=== PATIENT | male | born 1975 | race African-American/Black ===

== ENCOUNTER → 2017-08-08 | Outpatient (CLI) | payer OTHER ==
[~2017-08-08] MED LIST: NOHOMEMEDICATIONS
== END ==
LOC: HYPER 08-03 07:00
DX: L89.224 Pressure ulcer of left hip, stage 4 (principal); L89.894 Pressure ulcer of other site, stage 4; L89.210 Pressure ulcer of right hip, unstageable; G82.20 Paraplegia, unspecified; Z79.01 Long term (current) use of anticoagulants; I12.9 Hypertensive chronic kidney disease with stage 1 through stage 4 chronic kidney disease, or unspecified chronic kidney disease; N18.9 Chronic kidney disease, unspecified; F32.9 Major depressive disorder, single episode, unspecified; Z86.73 Personal history of transient ischemic attack (TIA), and cerebral infarction without residual deficits; Z86.711 Personal history of pulmonary embolism

== ENCOUNTER → 2017-08-16 | Outpatient (CLI) | payer OTHER | LOC: HYPER 08-14 09:35 | DX: L89.224 Pressure ulcer of left hip, stage 4 (principal); L89.894 Pressure ulcer of other site, stage 4; L89.210 Pressure ulcer of right hip, unstageable; G82.20 Paraplegia, unspecified; I12.9 Hypertensive chronic kidney disease with stage 1 through stage 4 chronic kidney disease, or unspecified chronic kidney disease; N18.9 Chronic kidney disease, unspecified; R53.1 Weakness; Z86.718 Personal history of other venous thrombosis and embolism; Z86.711 Personal history of pulmonary embolism; F32.9 Major depressive disorder, single episode, unspecified; Z86.73 Personal history of transient ischemic attack (TIA), and cerebral infarction without residual deficits ==